=== PATIENT | male | born 1960 | race Two or more races ===

== ENCOUNTER 2021-01-04 03:23 | Inpatient (IN) | payer MEDICARE, MEDICAID ==
[~2021-01-04] VITALS: Ht 172.7 cm; Wt 75.0 kg
[2021-01-04] MEDS ORDERED: NITROGLYCERIN 2% OINT 1GM PKG TD ONE (03:30)
[2021-01-04] MEDS ORDERED: FUROSEMIDE 40 MG/4 ML VIAL IV ONE (03:30)
[2021-01-04 03:54] LABS: Basophils # (auto) 0.1 10 ^3/uL (0-0.2); Basophils % (auto) 1.1 % (0.0-2.0); Eosinophils # (auto) 0.2 10 ^3/uL (0-0.8); Eosinophils % (auto) 4.5 % (0.0-7.0); Hematocrit 36.2 % (41.0-53.0); Lymphocytes # (auto) 1.9 10 ^3/uL (0.4-5.4); Mean Corpuscular Hemoglobin 31.3 pg (28.0-32.0); Mean Corpuscular Hgb Conc. 33.2 g/dL (32.0-36.0); Mean Corpuscular Volume 94.3 fL (80.0-100.0); Monocytes # (auto) 0.3 10 ^3/uL (0-1.3); Monocytes % (auto) 5.6 % (0.0-12.0); Neutrophils # (auto) 2.6 10 ^3/uL (1.6-8.6); Neutrophils % (auto) 51.8 % (37.0-80.0); Nucleated Red Blood Cells % 0.1 %; Platelet Count (auto) 226 10^3/uL (140-450); Red Blood Cells 3.84 10^6/uL (4.5-5.90); Red Cell Distribution Width 14.1 % (11.8-14.3)
[2021-01-04 04:15] LABS: Urine Bacteria NONE SEEN /hpf (None Seen); Urine Blood 1+ /uL (Negative); Urine Hyaline Cast FEW /lpf (0 - 2); Urine Specific Gravity 1.014 (1.001-1.035); Urine WBC 7 /hpf (0 - 3)
[2021-01-04 04:16] LABS: Albumin 1.9 g/dL (3.4-5.0); Anion Gap 8 (5-15); Blood Urea Nitrogen 35 mg/dL (7-18); Calcium 7.6 mg/dL (8.5-10.1); Carbon Dioxide 17 mmol/L (21-32); Chloride 115 mmol/L (98-107); Glucose 191 mg/dL (74-106); Magnesium 2.3 mg/dL (1.6-2.6); Potassium 3.9 mmol/L (3.5-5.1); Sodium 140 mmol/L (136-145)
[2021-01-04 04:17] VITALS: BP 177/88
[2021-01-04 04:18] LABS: Lactic Acid w/Reflex 2.9 mmol/L (0.4-2.0)
[2021-01-04 04:21] LABS: Alanine Aminotransferase 22 U/L (16-61); Alkaline Phosphatase 68 U/L (45-117); Aspartate Aminotransferase 28 U/L (15-37); BUN/Creatinine Ratio 11.8; Bilirubin, Total 0.2 mg/dL (0.2-1.0); CRP High Sensitivity 0.88 mg/dL (< 0.3); GFR African American 28 mL/min; GFR Non-African American 23 mL/min; Total Protein 6.4 g/dL (6.4-8.2)
[2021-01-04 05:18] LABS: INR 0.96 (0.9-1.15)
[2021-01-04] MEDS ORDERED: AZITHROMYCIN 500MG/ 250ML 250 ML IV ONE (05:45)
[2021-01-04] MEDS ORDERED: cefTRIAXone 1GM/50ML D5W 50 ML IV ONE (05:45)
[2021-01-04] MEDS ORDERED: DEXTROSE (50%) 50ML SYRG IV PRN (07:15)
[2021-01-04] MEDS ORDERED: ACETAMINOPHEN 325 MG TAB PO PRN (07:15)
[2021-01-04] MEDS ORDERED: ALBUTEROL SULF 2.5 MG/0.5ML(0.5%) NEB SOLN NEB PRN (07:15)
[2021-01-04] MEDS ORDERED: MORPHINE SULF INJ 2 MG/ML SYRINGE 1ML IV PRN (07:15)
[2021-01-04] MEDS ORDERED: TEMAZEPAM 15 MG CAP PO PRN (07:15)
[2021-01-04] MEDS ORDERED: NITROGLYCERIN 0.4 MG SL TAB SL PRN (07:15)
[2021-01-04] MEDS ORDERED: ONDANSETRON HCL 4 MG/2 ML VIAL IV PRN (07:15)
[2021-01-04] MEDS ORDERED: cloNIDine HCL 0.1 MG TAB PO PRN (07:15)
[2021-01-04] MEDS ORDERED: CARVEDILOL 3.125 MG TAB PO SCH ×2 (07:45→10:00)
[2021-01-04] MEDS: CARVEDILOL 3.125 MG TAB PO SCH ×2 (08:42→22:03)
[2021-01-04] MEDS: hydrALAZINE HCL 20 MG/ML VL IV PRN ×2 (09:10→22:03)
[2021-01-04] MEDS: PANTOPRAZOLE 40 MG TAB PO SCH (10:00)
[2021-01-04] MEDS: amLODIPine BESYLATE 5 MG TAB PO SCH ×2 (10:00→12:02)
[2021-01-04] MEDS: ACCU-CHEK COMFORT CURVE STRIP VI SCH ×3 (11:41→22:58)
[2021-01-04] MEDS: InsuLIN REG 1unit/0.01ml Soln (100units/ml) SC SCH ×3 (11:49→23:01)
[2021-01-04] MEDS ORDERED: HYDROcodone-ACET 5/325MG TAB PO PRN (15:00)
[2021-01-04] MEDS: FUROSEMIDE 40 MG/4 ML VIAL IV SCH (18:13)
[2021-01-04] MEDS ORDERED: MULT-940 PO (19:07)
[2021-01-04] MEDS ORDERED: CHOL500023 PO (19:07)
[2021-01-04] MEDS ORDERED: FERR-7 PO (19:07)
[2021-01-04] MEDS ORDERED: LID35TP EX (19:07)
[2021-01-04] MEDS ORDERED: [UNRECOGNIZED DRUG - OTHER] TOP (19:07)
[2021-01-04] MEDS ORDERED: FENO145T27 PO (19:07)
[2021-01-04] MEDS ORDERED: [UNRECOGNIZED DRUG - CODE] EACHEYE (19:07)
[2021-01-04] MEDS ORDERED: ASPI1TAB91 PO (19:07)
[2021-01-04] MEDS ORDERED: METF-370 PO (19:07)
[2021-01-04] MEDS ORDERED: ATOR10TA52 PO (19:07)
[2021-01-04] MEDS ORDERED: AMLO-496 PO (19:07)
[2021-01-04] MEDS ORDERED: CARV6.2551 PO (19:07)
[2021-01-04] MEDS ORDERED: INSU70IN3 SC (19:07)
[2021-01-04] MEDS ORDERED: LISI40TA11 PO (19:09)
[2021-01-04] MEDS ORDERED: HYDR-4902 PO (19:11)
[2021-01-04] MEDS: Glucerna Carbsteady SHAKE Vanilla 8oz PO SCH (19:31)
[2021-01-04 22:45] LABS: Urine Bacteria NONE SEEN /hpf (None Seen); Urine Blood 2+ /uL (Negative); Urine Specific Gravity 1.009 (1.001-1.035); Urine WBC 1 /hpf (0 - 3)
[2021-01-04 22:54] LABS: Protein, Urine 313.6 mg/dL (0.0-11.9)
[2021-01-05] MEDS: hydrALAZINE HCL 20 MG/ML VL IV PRN ×3 (04:54→22:45)
[2021-01-05] MEDS: FUROSEMIDE 40 MG/4 ML VIAL IV SCH ×2 (06:33→18:08)
[2021-01-05] MEDS: InsuLIN REG 1unit/0.01ml Soln (100units/ml) SC SCH ×4 (07:00→21:09)
[2021-01-05] MEDS: ACCU-CHEK COMFORT CURVE STRIP VI SCH ×4 (07:23→21:08)
[2021-01-05] MEDS: Glucerna Carbsteady SHAKE Vanilla 8oz PO SCH ×3 (08:00→18:00)
[2021-01-05 08:11] LABS: Basophils # (auto) 0.1 10 ^3/uL (0-0.2); Eosinophils # (auto) 0.1 10 ^3/uL (0-0.8); Hematocrit 32.1 % (41.0-53.0); Hemoglobin 10.9 g/dL (13.5-17.5); Lymphocytes # (auto) 1.2 10 ^3/uL (0.4-5.4); Lymphocytes % (auto) 18.4 % (10.0-50.0); Mean Corpuscular Hemoglobin 30.7 pg (28.0-32.0); Mean Corpuscular Hgb Conc. 33.9 g/dL (32.0-36.0); Mean Corpuscular Volume 90.7 fL (80.0-100.0); Monocytes # (auto) 0.3 10 ^3/uL (0-1.3); Monocytes % (auto) 4.5 % (0.0-12.0); Neutrophils # (auto) 4.8 10 ^3/uL (1.6-8.6); Neutrophils % (auto) 75.1 % (37.0-80.0); Nucleated Red Blood Cells % 0.1 %; Platelet Count (auto) 237 10^3/uL (140-450); Red Blood Cells 3.53 10^6/uL (4.5-5.90); Red Cell Distribution Width 14.3 % (11.8-14.3); White Blood Cell 6.4 10^3/uL (4.4-10.8)
[2021-01-05 08:32] LABS: Potassium 3.9 mmol/L (3.5-5.1)
[2021-01-05 08:45] LABS: Albumin 1.7 g/dL (3.4-5.0); BUN/Creatinine Ratio 12.3; Bilirubin, Total 0.3 mg/dL (0.2-1.0); Phosphorus 3.3 mg/dL (2.5-4.90); Uric Acid 6.1 mg/dL (3.5-7.2)
[2021-01-05] MEDS ORDERED: cefTRIAXone 1GM/50ML D5W 50 ML IV SCH (10:00)
[2021-01-05] MEDS ORDERED: AZITHROMYCIN 500MG/ 250ML 250 ML IV SCH (10:00)
[2021-01-05] MEDS: CARVEDILOL 3.125 MG TAB PO SCH ×2 (10:17→21:08)
[2021-01-05] MEDS: amLODIPine BESYLATE 5 MG TAB PO SCH (10:17)
[2021-01-05] MEDS: LISINOPRIL 20 MG TAB PO SCH (10:18)
[2021-01-05] MEDS: PANTOPRAZOLE 40 MG TAB PO SCH (10:18)
[2021-01-05 10:22] LABS: Thyroid Stimulating Hormone 2.32 uIU/mL (0.358-3.74)
[2021-01-05] MEDS ORDERED: ERGOCALCIFEROL 50,000 UNIT(1.25MG) CAP PO SCH (16:30)
[2021-01-05 18:52] LABS: Alcohol, Urine < 3.0 mg/dL (0-10); Amphetamine Screen, Urine NEGATIVE (NEGATIVE); Barbiturate Scree,Urine NEGATIVE (NEGATIVE); Benzodiazephine Screen, Urine NEGATIVE (NEGATIVE); Cocaine Screen, Urine NEGATIVE (NEGATIVE); Opiate Scree,Urine NEGATIVE (NEGATIVE); Phencyclidine Screen, Urine NEGATIVE (NEGATIVE)
[2021-01-05 19:18] LABS: Cannabinoid Screen, Urine POSITIVE (NEGATIVE)
[2021-01-05 20:00] VITALS: BP 139/76
[2021-01-05 22:00] VITALS: BP 139/76
[2021-01-06] VITALS (7 sets, daily range): BP systolic 139–183; BP diastolic 69–88
[2021-01-06] MEDS: FUROSEMIDE 40 MG/4 ML VIAL IV SCH ×2 (05:31→18:00)
[2021-01-06] MEDS: ACCU-CHEK COMFORT CURVE STRIP VI SCH ×4 (06:14→21:41)
[2021-01-06] MEDS: InsuLIN REG 1unit/0.01ml Soln (100units/ml) SC SCH ×4 (06:14→21:41)
[2021-01-06 07:53] LABS: Potassium 3.9 mmol/L (3.5-5.1)
[2021-01-06] MEDS: Glucerna Carbsteady SHAKE Vanilla 8oz PO SCH ×3 (08:00→18:00)
[2021-01-06 08:05] LABS: BUN/Creatinine Ratio 12.8; Calcium 8.1 mg/dL (8.5-10.1)
[2021-01-06] MEDS: PANTOPRAZOLE 40 MG TAB PO SCH (08:45)
[2021-01-06] MEDS: amLODIPine BESYLATE 5 MG TAB PO SCH (08:46)
[2021-01-06] MEDS: LISINOPRIL 20 MG TAB PO SCH (08:46)
[2021-01-06] MEDS: CARVEDILOL 3.125 MG TAB PO SCH ×2 (08:47→21:40)
[2021-01-06] MEDS ORDERED: ADENOSINE 64 MG in GIVE UN-DILUTED 0 ML IV ONE (09:00)
[2021-01-06] MEDS: SODIUM CHLORIDE 0.9% 1,000 ML IV SCH (17:30)
[2021-01-06] MEDS: hydrALAZINE HCL 20 MG/ML VL IV PRN (21:42)
[2021-01-06] MEDS ORDERED: ACETYLCYSTEINE ORAL for CIN 20%(200MG/ML) 4ML PO SCH (22:00)
[2021-01-07] MEDS: SODIUM CHLORIDE 0.9% 1,000 ML IV SCH ×2 (03:30→13:30)
[2021-01-07 04:55] VITALS: BP 133/66
[2021-01-07 05:00] VITALS: BP 160/76
[2021-01-07] MEDS: FUROSEMIDE 40 MG/4 ML VIAL IV SCH (05:39)
[2021-01-07] MEDS: ACCU-CHEK COMFORT CURVE STRIP VI SCH ×2 (05:55→11:14)
[2021-01-07] MEDS: InsuLIN REG 1unit/0.01ml Soln (100units/ml) SC SCH ×2 (06:27→11:36)
[2021-01-07 07:14] LABS: Potassium 3.5 mmol/L (3.5-5.1)
[2021-01-07 07:18] LABS: BUN/Creatinine Ratio 13.3; Calcium 8.1 mg/dL (8.5-10.1)
[2021-01-07] MEDS: Glucerna Carbsteady SHAKE Vanilla 8oz PO SCH ×2 (08:00→11:39)
[2021-01-07 09:00] VITALS: BP 163/85
[2021-01-07] MEDS ORDERED: ERGO1CAP23 PO (09:35)
[2021-01-07] MEDS ORDERED: AMLO-496 PO (09:35)
[2021-01-07] MEDS ORDERED: CAR125T PO (09:35)
[2021-01-07] MEDS ORDERED: INSU70IN3 SC (09:35)
[2021-01-07] MEDS ORDERED: LISI40TA11 PO (09:35)
[2021-01-07] MEDS ORDERED: FURO40TA4 PO (09:35)
[2021-01-07] MEDS ORDERED: HYDR50TA15 PO (09:37)
[2021-01-07] MEDS ORDERED: CARVEDILOL 12.5 MG TAB PO SCH (10:00)
[2021-01-07] MEDS ORDERED: ACETYLCYSTEINE ORAL for CIN 20%(200MG/ML) 4ML PO SCH (10:00)
[2021-01-07] MEDS: PANTOPRAZOLE 40 MG TAB PO SCH (10:32)
[2021-01-07] MEDS: amLODIPine BESYLATE 5 MG TAB PO SCH (10:34)
[2021-01-07] MEDS: LISINOPRIL 20 MG TAB PO SCH (10:35)
[2021-01-07] MEDS: hydrALAZINE HCL 20 MG/ML VL IV PRN (12:06)
[2021-01-07 13:00] VITALS: BP 167/81
== END 2021-01-07 15:00 | disposition home health service (06) | DRG 291 ==
LOC: EDBD 03:23 → ER 03:27 → TELE 07:04 → TELE-EAST 01-05 20:00
PROVIDERS: ADMIT Nurse Practitioner; ATTEND Internal Medicine
PROC: 5A09357 Assistance with Respiratory Ventilation, Less than 24 Consecutive Hours, Continuous Positive Airway Pressure (ICD-10-PCS; principal; 2021-01-04)
DX: I11.0 Hypertensive heart disease with heart failure (principal); J96.00 Acute respiratory failure, unspecified whether with hypoxia or hypercapnia; N17.0 Acute kidney failure with tubular necrosis; N18.4 Chronic kidney disease, stage 4 (severe); I16.1 Hypertensive emergency; E87.2 Acidosis; I50.33 Acute on chronic diastolic (congestive) heart failure; Z20.822 Contact with and (suspected) exposure to COVID-19; D63.8 Anemia in other chronic diseases classified elsewhere; E78.5 Hyperlipidemia, unspecified; E11.40 Type 2 diabetes mellitus with diabetic neuropathy, unspecified; E11.22 Type 2 diabetes mellitus with diabetic chronic kidney disease; E55.9 Vitamin D deficiency, unspecified; E88.09 Other disorders of plasma-protein metabolism, not elsewhere classified; E11.51 Type 2 diabetes mellitus with diabetic peripheral angiopathy without gangrene; Z89.432 Acquired absence of left foot; Z79.899 Other long term (current) drug therapy
CPT/HCPCS: 36415; 36600; 71045; 76775; 78452; 80048; 80053; 80307; 81001; 82306; 82570; 82728; 82805; 82962; 83036; 83605; 83615; 83735; 83880; 84100; 84156; 84166; 84300; 84443; 84484; 84550; 85025; 85049; 85610; 85652; 86141; 87040; 87086; 87426; 93005; 93017; 93306; 93925; 94660; 96365; 96368; 96375; 99291; G0378; J0153; J0696; J1815

== ENCOUNTER → 2021-01-25 | Outpatient (CLI) | payer MEDICARE, MEDICAID ==
[~2021-01-25] MED LIST: AMLO-496 PO; ASPI1TAB91 PO; ATOR10TA52 PO; CAR125T PO; CARV6.2551 PO; CHOL500023 PO; ERGO1CAP23 PO; FENO145T27 PO; FERR-7 PO; FURO40TA4 PO; HYDR-4902 PO; HYDR50TA15 PO; INSU70IN3 SC; LID35TP EX; LISI40TA11 PO; MULT-940 PO; [UNRECOGNIZED DRUG - CODE] EACHEYE
[2021-01-25 10:36] LABS: Potassium 4.2 mmol/L (3.5-5.1)
[2021-01-25 10:42] LABS: BUN/Creatinine Ratio 13.7; Calcium 8.6 mg/dL (8.5-10.1)
== END | disposition home or self-care (01) ==
LOC: LAB 08:43
PROVIDERS: ATTEND Internal Medicine
DX: N18.4 Chronic kidney disease, stage 4 (severe) (principal)
CPT/HCPCS: 36415; 80048

== ENCOUNTER → 2021-02-04 | Outpatient (CLI) | payer MEDICARE, MEDICAID ==
[2021-02-04 09:31] LABS: % Iron Saturation 14.9 % (20-55)
[2021-02-04 10:15] LABS: Hepatitis B Surface Antibody Negative
[2021-02-04 13:46] LABS: Hepatitis A Ab IgM Negative; Hepatitis B Core IgM Negative
[2021-02-04 13:47] LABS: Hepatitis B Surface Antigen Negative (Negative)
[2021-02-05 08:06] LABS: Immunoglobulin G, Serum 1032 mg/dL (603-1613)
[2021-02-05 18:08] LABS: Hepatitis B Core Total AB Positive
== END | disposition home or self-care (01) ==
LOC: LAB 08:23
PROVIDERS: ATTEND Internal Medicine Nephrology
DX: I12.9 Hypertensive chronic kidney disease with stage 1 through stage 4 chronic kidney disease, or unspecified chronic kidney disease (principal); N18.4 Chronic kidney disease, stage 4 (severe); R80.9 Proteinuria, unspecified
CPT/HCPCS: 36415; 82728; 82784; 83540; 83550; 83883; 84155; 84156; 84165; 84166; 86334; 86335; 86703; 86704; 86705; 86706; 86709; 86803; 87340

== ENCOUNTER → 2021-02-08 | Outpatient (CLI) | payer MEDICARE, MEDICAID ==
[2021-02-08 08:49] LABS: Basophils # (auto) 0.1 10 ^3/uL (0-0.2); Basophils % (auto) 1.1 % (0.0-2.0); Eosinophils # (auto) 0.2 10 ^3/uL (0-0.8); Eosinophils % (auto) 4.3 % (0.0-7.0); Hematocrit 29.1 % (41.0-53.0); Hemoglobin 9.9 g/dL (13.5-17.5); Lymphocytes # (auto) 1.2 10 ^3/uL (0.4-5.4); Mean Corpuscular Hemoglobin 30.8 pg (28.0-32.0); Mean Corpuscular Volume 90.5 fL (80.0-100.0); Monocytes # (auto) 0.3 10 ^3/uL (0-1.3); Monocytes % (auto) 6.1 % (0.0-12.0); Neutrophils # (auto) 3.1 10 ^3/uL (1.6-8.6); Neutrophils % (auto) 63.5 % (37.0-80.0); Red Blood Cells 3.21 10^6/uL (4.5-5.90); Red Cell Distribution Width 13.9 % (11.8-14.3); White Blood Cell 4.9 10^3/uL (4.4-10.8)
[2021-02-08 08:57] LABS: Potassium 3.9 mmol/L (3.5-5.1)
[2021-02-08 09:06] LABS: Albumin 2.1 g/dL (3.4-5.0); BUN/Creatinine Ratio 13.4; Bilirubin, Total 0.3 mg/dL (0.2-1.0); Calcium 8.2 mg/dL (8.5-10.1); Total Protein 6.5 g/dL (6.4-8.2)
[2021-02-08 09:18] LABS: Protein, Urine 987.3 mg/dL (0.0-11.9)
[2021-02-08 11:08] LABS: 24 Hr. Total Protein, Urine 15056.3 mg/24 Hr (<149.1)
[2021-02-08 13:51] LABS: Creatinine Clearance, Urine 19.31 mL/min (75-115)
== END | disposition home or self-care (01) ==
LOC: LAB 07:53
PROVIDERS: ATTEND Student in an Organized Health Care Education/Training Program
DX: I12.9 Hypertensive chronic kidney disease with stage 1 through stage 4 chronic kidney disease, or unspecified chronic kidney disease (principal); E11.22 Type 2 diabetes mellitus with diabetic chronic kidney disease; N18.4 Chronic kidney disease, stage 4 (severe); R80.9 Proteinuria, unspecified
CPT/HCPCS: 36415; 80053; 80061; 82043; 82575; 83036; 84156; 84443; 85025

== ENCOUNTER → 2021-02-12 | Outpatient (CLI) | payer MEDICARE, MEDICAID ==
[2021-02-12 10:17] LABS: BUN/Creatinine Ratio 15.4; Calcium 8.2 mg/dL (8.5-10.1); Potassium 3.9 mmol/L (3.5-5.1)
== END | disposition home or self-care (01) ==
LOC: LAB 09:24
PROVIDERS: ATTEND Internal Medicine Nephrology
DX: E11.22 Type 2 diabetes mellitus with diabetic chronic kidney disease (principal); N18.4 Chronic kidney disease, stage 4 (severe); E11.21 Type 2 diabetes mellitus with diabetic nephropathy
CPT/HCPCS: 36415; 80048; 83883; 86038; 86160; 86225; 86256

== ENCOUNTER 2024-04-14 09:26 | Emergency (ER) | payer MEDICARE, MEDICAID ==
[~2024-04-14] VITALS: Ht 167.6 cm; Wt 70.0 kg
[~2024-04-14 09:26] MED LIST changes: -AMLO-496 PO; +AMLO1TAB22 PO; +AMLO1TAB23 PO; +ASPI-543 PO; -ASPI1TAB91 PO; +ASPI81TA28 PO; +CALC667C5 PO; -CAR125T PO; +CARV-216 PO; +CARV12.544 PO; +DEXT40GE PO; +DOXY1CAP57 PO; -HYDR50TA15 PO; +HYDR50TA47 PO; +INS7030I SC; +LISI20TA56 PO; -LISI40TA11 PO; +LISI40TA16 PO; +MULT-1018 PO; +SEVE800T10 PO; +SILD100T PO; +SODI650T PO; +SUCR5CHW PO
[2024-04-14 10:15] VITALS: BP 111/58; PULSE 61; RESP 20; TEMP 98; O2SAT 95
[2024-04-14] MEDS: PIPERACILLIN-TAZOB 3.375GM 100 ML IV ONE (10:21)
== END 2024-04-14 11:36 | disposition home or self-care (01) ==
LOC: ER 09:26
DX: L03.116 Cellulitis of left lower limb (principal); E11.22 Type 2 diabetes mellitus with diabetic chronic kidney disease; I13.2 Hypertensive heart and chronic kidney disease with heart failure and with stage 5 chronic kidney disease, or end stage renal disease; N18.6 End stage renal disease; Z99.2 Dependence on renal dialysis; Z79.4 Long term (current) use of insulin; Z79.82 Long term (current) use of aspirin; Z79.899 Other long term (current) drug therapy; Z90.49 Acquired absence of other specified parts of digestive tract
CPT/HCPCS: 96365; 99284; J2543